=== PATIENT | male | born 1955 | race Caucasian/White ===

== ENCOUNTER → 2016-03-23 | Outpatient (CLI) | payer BC ==
[~2016-03-23] MED LIST: AMOX500C3 PO
== END | disposition home or self-care (01) ==
LOC: C.LAB 06:56
PROVIDERS: ATTEND Urology
DX: Z85.46 Personal history of malignant neoplasm of prostate (principal)

== ENCOUNTER → 2016-07-31 | Outpatient (CLI) | payer BC ==
--- NOTE | 2016-07-31 08:23 | DIAGNOSTIC IMAGING REPORT ---
PELVIS BILATERAL HIP 2 CLINICAL HISTORY: L hip pain. Bilateral hip replacements. COMPARISON: Pelvis radiographs August 02, 2015 and bone scan August 16, 2015. FINDINGS: Alignment of the total bilateral hip arthroplasties is anatomic. There is no periprosthetic fracture or lucency. The iliac crests were not included on this exam. No fracture or suspicious lesion is identified within visualized portions of the pelvis or the hips. As hypervascular screws are in place. IMPRESSION: Status post total bilateral hip arthroplasties. Hardware intact with no periprosthetic fracture or lucency. Electronically signed by: Fernie Acevedo M.D. 07/31/2016 8:22 AM Dictated Date/Time: 07/31/2016 8:21 AM
== END | disposition home or self-care (01) ==
LOC: C.RDSM 07:45
PROVIDERS: ATTEND Physician Assistant
DX: Z96.643 Presence of artificial hip joint, bilateral (principal)

== ENCOUNTER → 2016-10-27 | Outpatient (CLI) | payer BC | END | disposition home or self-care (01) | LOC: C.LAB 06:55 | PROVIDERS: ATTEND Urology | DX: Z85.46 Personal history of malignant neoplasm of prostate (principal) ==

== ENCOUNTER → 2017-04-13 | Outpatient (CLI) | payer BC, OTHER ==
--- NOTE | 2017-04-13 11:02 | DIAGNOSTIC IMAGING REPORT ---
R HAND MIN 3 VIEWS HISTORY: 61 years-old Male RIGHT HAND PAIN acute right hand pain COMPARISON: None available TECHNIQUE: 3 views of the right hand FINDINGS: Mild radiocarpal, triscaphe and first carpal metacarpal osteoarthritis. Cortical thickening of the fifth metatarsal neck distally suggests remote healed fracture. Mild Osteophytic spurring involves the metacarpal heads. No acute fracture, dislocation or opaque foreign body. IMPRESSION: 1. Mild degenerative changes without acute fracture or dislocation. 2. Cortical thickening of the distal fifth metacarpal suggests sequela of remote healed fracture. The above report was generated using voice recognition software. It may contain grammatical, syntax or spelling errors. Electronically signed by: Cisco Castellanos M.D. 04/13/2017 11:01 AM Dictated Date/Time: 04/13/2017 10:58 AM
--- NOTE | 2017-04-13 11:04 | DIAGNOSTIC IMAGING REPORT ---
L HAND MIN 3 VIEWS CLINICAL HISTORY: 61 years-old Male presenting with LEFT HAND PAIN. TECHNIQUE: Frontal, oblique, and lateral views of the left hand were obtained. COMPARISON: Comparison made to plain radiographs of the right hand. FINDINGS: No acute fracture or malalignment. No advanced degenerative change. No radiographic soft tissue abnormality. IMPRESSION: No acute osseous injury. Electronically signed by: Woody Lerner M.D. 04/13/2017 11:02 AM Dictated Date/Time: 04/13/2017 11:01 AM
== END | disposition home or self-care (01) ==
LOC: C.RDSM 10:50
PROVIDERS: ATTEND Physician Assistant
DX: M79.641 Pain in right hand (principal); M79.642 Pain in left hand

== ENCOUNTER 2017-07-13 09:18 | Emergency (ER) | payer OTHER ==
[~2017-07-13] VITALS: Ht 170.2 cm; Wt 100.9 kg
[2017-07-13 09:39] VITALS: Ht 170.2 cm; Wt 100.9 kg
--- NOTE | 2017-07-13 09:52 | EMERGENCY ROOM VISIT NOTE ---
History Report prepared by Kishor: Zachery Daniels Under the Supervision of: Dr. Christoph Davalos M.D. First contact with patient: 09:46 Chief Complaint: FINGER PAIN Stated Complaint: FINGER SWOLLEN AROUND RING History of Present Illness The patient is a 61 year old male who presents to the Emergency Room with complaints of constant left ring finger swelling beginning last night. The patient states that he has been working on engines for the past week and might have cut his finger under his wedding ring. He notes that he noticed a laceration under his ring last night, and squeezed his finger to get the ring off. He reports that when he squeezed his finger, a small amount of pus came out. The patient states that he is now unable to get his ring off because his finger swelled overnight. He notes that he tried the "string trick" to get the ring off with no success. He denies any abdominal pain, fever, chills, cough, and congestion. He reports that he does not have a history of diabetes. Source of History: patient Onset: last night Position: other (left ring finger) Quality: other (swelling) Timing: constant Associated Symptoms: No fevers, No chills, No cough, No abdominal pain Note: The patient also complains of a laceration under his ring that drains pus when squeezed. He denies any congestion. Review of Systems See HPI for pertinent positives and negatives. A total of ten systems were reviewed and were otherwise negative. Past Medical & Surgical Medical Problems: (1) No Known Active Medical Problems Family History No pertinent family history stated. Social History Smoking Status: Current Every Day Smoker Marital Status: Housing Status: lives with family Occupation Status: employed Current/Historical Medications Scheduled PRN Amoxicillin (Amoxil), 500 MG PO DIRECTED PRN for BEFORE DENTAL PROCEDURES Allergies Coded Allergies: No Known Allergies (Unverified , 07/13/17) Physical Exam Vital Signs Date Time Temp Pulse Resp B/P (MAP) Pulse Ox O2 Delivery O2 Flow Rate FiO2 07/13/17 10:51 37.0 90 18 170/93 95 07/13/17 09:39 37.0 68 18 149/80 93 Room Air Physical Exam GENERAL: Awake, alert, well-appearing, in no distress HENT: Normocephalic, atraumatic. Oropharynx unremarkable. EYES: Normal conjunctiva. Sclera non-icteric. NECK: Supple. No nuchal rigidity. FROM. No JVD. RESPIRATORY: Clear to auscultation. CARDIAC: Regular rate, normal rhythm. Extremities warm and well perfused. Pulses equal. ABDOMEN: Soft, non-distended. No tenderness to palpation. No rebound or guarding. No masses. RECTAL: Deferred. MUSCULOSKELETAL: Chest examination reveals no tenderness. The back is symmetrical on inspection without obvious abnormality. There is no CVA tenderness to palpation. No joint edema. UPPER EXTREMITIES: Left forth phalanx with ring stuck and distal edema, no erythema or warmth. LOWER EXTREMITIES: Calves are equal size bilaterally and non-tender. No edema. No discoloration. NEURO: Normal sensorium. No sensory or motor deficits noted. SKIN: No rash or jaundice noted. Medical Decision & Procedures ED Course 0947: The patient was evaluated in room B8. A complete history and physical exam was performed. 1029: I reevaluated the patient. Discussed results and discharge instructions: he verbalized understanding and agreement. The patient is ready for discharge. Medical Decision I reviewed the patient's past medical history, medications, and the nursing notes as described above. Differential diagnoses include: stuck ring, cellulitis, abscess. The patient is a 61 y/o gentleman who presents to the emergency department with his wedding ring stuck on his left ring finger since yesterday per HPI. On arrival the patient is well-appearing, in NAD, AFVSS. Denies f/c, n/v. On exam, left 4th proximal phalanx demonstrate ring stuck with distal swelling. Mild erythema underlying rink but otherwise no warm or ttp. Unable to slide ring off with soap. Patient previously attempt string technique without success, thus, ring removed by tech with ring cutter. Post-removal without evidence of fluctuance or induration to suggest abscess. FROM active and passively without pain. Findings and plan for follow-up reviewed with patient. Patient agreeable and d/c'd per discharge instructions. Blood Pressure Screening Patient's blood pressure: Elevated blood pressure Blood pressure disposition: Elevated BP felt to be situational Impression Primary Impression: Tight ring on finger Scribe Attestation The scribe's documentation has been prepared under my direction and personally reviewed by me in its entirety. I confirm that the note above accurately reflects all work, treatment, procedures, and medical decision making performed by me. Departure Information Dispostion Home / Self-Care Referrals Clark Eller M.D. (PCP) Forms HOME CARE DOCUMENTATION FORM, IMPORTANT VISIT INFORMATION, WORK / SCHOOL INSTRUCTIONS Patient Instructions My [facility] Additional Instructions Please follow up with your primary care physician as needed for re-evaluation. Your ring was successfully removed. Otherwise, your exam did not show signs of an emergent condition at this time. Acetaminophen or ibuprofen for pain and fevers as needed. Apply antibiotic ointment and was daily with soap and water. Return to the emergency department for worsening symptoms as described in the accompanying instructions.
[2017-07-13 10:51] VITALS: BP 170/93; PULSE 90; TEMP 37; O2SAT 95
== END 2017-07-13 10:54 | disposition home or self-care (01) ==
LOC: C.EDB 09:19
DX: S60.455A Superficial foreign body of left ring finger, initial encounter (principal); S61.215A Laceration without foreign body of left ring finger without damage to nail, initial encounter; W26.8XXA Contact with other sharp object(s), not elsewhere classified, initial encounter; R03.0 Elevated blood-pressure reading, without diagnosis of hypertension; F17.200 Nicotine dependence, unspecified, uncomplicated

== ENCOUNTER 2023-03-14 05:10 | Observation (INO) ==
--- NOTE | 2023-02-20 14:55 | PAT Medication Instructions ---
Medication Instructions Date of Service February 20, 2023 Home Medications amoxicillin 500 mg tablet 500 mg PO UD PRN multivitamin 1 tab PO QAM cyclobenzaprine 10 mg tablet 10 mg PO TID PRN doxycycline hyclate 100 mg tablet 100 mg PO BID PRN ibuprofen 200 mg tablet (Advil) 200 mg PO BID PRN latanoprost (PF) 0.005 % eye drops in a dropperette 1 drp ophthalmic (eye) PM levothyroxine 50 mcg tablet 50 mcg PO QAM valsartan 80 mg tablet 80 mg PO QAM Continue as directed amoxicillin 500 mg tablet 500 mg PO UD PRN(if needed) ASK your surgeon for instructions ibuprofen 200 mg tablet (Advil) 200 mg PO BID PRN DO NOT take the morning of surgery multivitamin 1 tab PO QAM valsartan 80 mg tablet 80 mg PO QAM Take morning of surgery With a small sip of water, OTHERWISE NOTHING TO EAT OR DRINK AFTER MIDNIGHT: cyclobenzaprine 10 mg tablet 10 mg PO TID PRN(if needed) doxycycline hyclate 100 mg tablet 100 mg PO BID PRN(if needed) levothyroxine 50 mcg tablet 50 mcg PO QAM Take evening before surgery cyclobenzaprine 10 mg tablet 10 mg PO TID PRN(if needed) doxycycline hyclate 100 mg tablet 100 mg PO BID PRN(if needed) latanoprost (PF) 0.005 % eye drops in a dropperette 1 drp ophthalmic (eye) PM Other Notes If you have any questions please call us at [phone] or [phone] or [phone] or [phone]
--- NOTE | 2023-03-01 13:47 | Anesthesiology Consultation ---
Date of Service March 01, 2023 Assessment & Plan (1) Encounter for pre-operative examination: - Infectious disease screening: Per assessment on 03/01/22: No known infectious disease contacts. No current/recent infectious disease symptoms in past 10+ days. No noted recent Covid positive test result. - Outpatient joint pathway: Per OR booking comments, plan for outpatient joint program. Patient seen at [facility] 03/01/23. Patient is medically an acceptable candidate to proceed as planned outpatient joint pathway pending perioperative course. Patient states he is leaning towards wishing to stay overnight postoperatively per his own preference- he states he will make ultimate decision with surgeon. - Patient acceptable risk for surgery pending surgeon-ordered PCP preop evaluation ([facility], appt 03/05). Chart Review Chart Review: Patient seen in Pre Admission Testing Teaching & Discussion Pre-Anesthesia Teaching/Discussion Notes: Instructed NPO after midnight before surgery,except medications with 15 cc of water. Medication instructions provided according to the [facility] guidelines. History Surgery Operation Date: 03/14/23 07:00 Proposed Procedures p Left Total Knee Arthroplasty - Chauncey Hagen MD Height/Weight Height: 5 ft 7 in Weight: 98.9 kg Allergies Allergy/AdvReac Type Severity Reaction Status Date / Time No Known Drug Allergies Allergy Verified 02/15/23 13:27 Medications Home Medications Medication Instructions Recorded Confirmed Last Taken amoxicillin 500 mg tablet 500 mg PO UD PRN BEFORE DENTAL 08/15/18 02/15/23 08/20/18 PROCEDURES multivitamin 1 tab PO QAM 07/10/22 02/15/23 Unknown cyclobenzaprine 10 mg tablet 10 mg PO TID PRN Pain 08/15/22 02/15/23 Unknown doxycycline hyclate 100 mg tablet 100 mg PO BID PRN tick bites 02/15/23 02/15/23 Unknown ibuprofen 200 mg tablet (Advil) 200 mg PO BID PRN Pain 02/15/23 02/15/23 Unknown latanoprost (PF) 0.005 % eye drops 1 drp ophthalmic (eye) PM 02/15/23 02/15/23 Unknown in a dropperette levothyroxine 50 mcg tablet 50 mcg PO QAM 02/15/23 02/15/23 Unknown valsartan 80 mg tablet 80 mg PO QAM #90 Tabs 02/27/23 Unknown Past Medical History Medical History Hypothyroidism Hypertension Restless leg syndrome mild History of COVID-19 Summer 2021- mild flu symptoms Thyroid nodule Osteoarthritis Prostate cancer s/p prostatectomy (approximately 2015) Exercise / Class Metabolic Activity II 4-5 Yardwork/Stairs/Walk up hill Past Family History Family History Mother Diabetes Breast cancer Hypertension Father Thyroid cancer Hypertension Sister Thyroid cancer Past Surgical History Surgical History History of arthroscopy Left knee History of total hip arthroplasty R/L Hx of prostate biopsy History of colonoscopy History of prostatectomy Approximately 2015 ([facility]) History of tooth extraction Past Anesthesia History No Family Hx of Anesthesia Complications and Other (Awareness with left ERLIN) History of PONV No Hx of PONV and No Hx of Motion Sickness Social History Smoking Status: Current every day smoker tobacco type: cigars Smoking cigarettes per day: Cigars-3-5 small cigars daily Do You Dip or Chew Tobacco: No Hx Alcohol Use: Yes Alcohol type: beer alcohol intake frequency: a few times a week Hx Substance Use: No substance use type: does not use Review of Systems Patient denies chest pain, shortness of breath, dyspnea on exertion, fever, chills, cough, wheezing, palpitations. Physical Exam Vital Signs VITALS BP 139/71 P 63 TEMP 98.3 SP02 95%RA RESP 16 PHYSICAL Full cervical extension range of motion. Full TMJ range of motion. TMD 4 finger breaths Mallampati Score 1 Dentition: intact, + crowns/implants Lungs: clear throughout to auscultation Cardiac: regular rate and rhythm, no murmurs noted Spine: normal Carotid arteries: negative bruit Extremities: no LE edema Lab Results Anesthesia Preop Results Results Anesthesia Widget: WBC 7.33 K/ul (4.8-10.8) 02/05/23 Hgb 16.6 g/dl (14.0-18.0) 02/05/23 Hct 48.9 % (42.0-52.0) 02/05/23 Plt 206 K/uL (130-400) 02/05/23 Na 139 mmol/L (136-145) 02/05/23 K 4.2 mmol/L (3.5-5.1) 02/05/23 Cl 110 mmol/L (98-107) H 02/05/23 CO2 22 mmol/L (21-32) 02/05/23 BUN 24 mg/dl (6-23) H 02/05/23 Creat 0.94 mg/dl (0.6-1.4) 02/05/23 Glucose Level 110 mg/dl (70-99(Fasting)) H 02/05/23 PT 10.5 Seconds (9.0-12.0) 03/01/23 PTT 27 Seconds (21-31) 03/01/23 INR 1.0 (0.9-1.1) 03/01/23 TSH 3.707 uIu/ml (0.300-4.500) 02/05/23 Urine Color Yellow 03/01/23 Urine Appearance Clear (Clear) 03/01/23 Urine pH 6.5 (4.5-7.5) 03/01/23 Urine Specific [place] 1.017 (1.000-1.030) 03/01/23 Urine Protein Negative (Negative) 03/01/23 Urine Glucose (UA) Negative (Negative) 03/01/23 Urine Ketones Negative (Negative) 03/01/23 Urine Blood Negative (Negative) 03/01/23 Urine Nitrite Negative (Negative) 03/01/23 Urine Bilirubin Negative (Negative) 03/01/23 Urine Urobilinogen Negative (Negative) 03/01/23 Urine Leukocyte Esterase Negative (Negative) 03/01/23 Blood Type O Negative 03/01/23 Antibody Screen NEGATIVE 03/01/23 Testing Electrocardiogram Date: 03/01/23 NSR at 63bpm. LAD. Chest X-Ray Date: 03/01/23 FINDINGS: The lungs are clear. Cardiac silhouette is normal in size. No pleural effusions. No pneumothorax. IMPRESSION: No acute process.
[2023-03-14] MEDS ORDERED: LR 500ML BOLUS, THEN 15ML/HR IV SCH (06:00)
[2023-03-14] MEDS ORDERED: ROPIVACAINE 0.5% HCL/PF 246 MG, Ketorolac (*for OR use only*) 30 MG, EPINEPHrine 30MG/3... INFIL SCH (06:00)
[2023-03-14] MEDS ORDERED: ceFAZolin 2000MG 2,000 MG/15 ML SYR IV SCH (06:00)
[2023-03-14] MEDS ORDERED: TRANEXAMIC ACID 1,000 MG **IV Pre-op IV SCH (06:00)
[2023-03-14] MEDS ORDERED: BUPIVACAINE 0.5 % 5 MG/1 ML PF 10ML VIAL ONE (06:19)
[2023-03-14] MEDS ORDERED: ROPIVACAINE 0.5% 5 MG/ML 30 ML VIAL ONE (06:19)
--- NOTE | 2023-03-14 06:31 | History & Physical Bridge Note ---
Date of Service March 14, 2023 History & Physical Bridge Note I have examined the patient, reviewed the History & Physical and in the interval since the performance of the History & Physical I have noted the following changes of clinical significance: site and consent verified.no changes noted
[2023-03-14] MEDS ORDERED: ONDANSETRON INJ 2 MG/ML 2 ML VIAL IV PRN ×2 (06:34→10:34)
[2023-03-14] MEDS ORDERED: fentaNYL citrate PF 100 MCG/2 ML VIAL IV PRN (06:34)
[2023-03-14] MEDS ORDERED: ePHEDrine sulfate 50 MG/ML AMP IV PRN (06:34)
[2023-03-14] MEDS ORDERED: ATROPINE SULFATE 0.1 MG/ML 10ML SYR IV PRN (06:34)
[2023-03-14] MEDS ORDERED: ORTHO JOINT ANESTHETIC ONE (06:35)
[2023-03-14] MEDS ORDERED: fentaNYL citrate PF 100 MCG/2 ML VIAL ONE (06:36)
[2023-03-14] MEDS ORDERED: MIDAZOLAM HCL 1 MG/ML 2ML VIAL ONE ×2 (06:36→07:01)
[2023-03-14] MEDS ORDERED: PROPOFOL IV EMULSION 10 MG/ML 20 ML VIAL IV ONE ×3 (07:22→08:17)
[2023-03-14] MEDS ORDERED: GLYCOPYRROLATE 0.2 MG/ML VIAL ONE (07:22)
[2023-03-14] MEDS ORDERED: ONDANSETRON INJ 2 MG/ML 2 ML VIAL ONE (07:22)
[2023-03-14] MEDS ORDERED: PHENYLEPHRINE HCL 10 MG/ML VIAL ONE ×2 (07:22)
[2023-03-14] MEDS ORDERED: TRANEXAMIC ACID / 0.7% NACL 1000MG/100ML BAG IV ONE (08:11)
[2023-03-14] MEDS ORDERED: TRANEXAMIC ACID 100 MG/ML 10 ML VIAL IV ONE (08:11)
--- NOTE | 2023-03-14 08:40 | Post Operative Brief Note ---
Immediate Post Op Note v1 Date of Surgery March 14, 2023 Pre & Post Diagnosis Operation Date: 03/14/23 07:00 <No data on this case meets the specified criteria> Pre and postop diagnosis is osteoarthritis with flexion varus deformity left knee failed conservative management postop diagnosis same I identified the patient and participated in the time-out.: Yes Procedure Operation Date: 03/14/23 07:00 <No data on this case meets the specified criteria> Cemented rotating platform left total knee replacement Surgeon Chauncey Hagen MD Security Assessor VINEET/Ai Estimated Blood Loss 25 Findings Consistent with Post-Op Diagnosis Severe DJD with flexion varus deformity Fluids See anesthesia report Complications None
--- NOTE | 2023-03-14 08:45 | Operative Report ---
Post Operative Report Procedure Date: March 14, 2023 Pre & Post Diagnosis: [Severe osteoarthritis left knee with flexion varus deformity preop diagnosis Postop diagnosis same] Time Out: I identified the patient and participated in the time-out. Procedure: [Cemented left total knee replacement rotating platform system] Surgeon: Blake] Laborer [employer]: [VINEET/Ai] Estimated Blood Loss: [] 25 cc Findings: [Severe medial patellofemoral arthropathy severe flexion deformity and varus alignment] Specimens: [Bone pathology] Description of Procedure: [After the patient was appropriate notified site verified consent verified antibiotics and TXA confirmed to be given the left lower extremity was prepped and draped in his routine fashion. EUA revealed flexion deformity of about 7 degrees varus alignment of about 7 degrees tourniquet was inflated to 275 mmHg to exsanguinate limb and arteries are manage for total 63 minutes. There was extensive synovitis this was resected. There was extensive osteophytes these were resected. The box was all congested with osteophytes there is ACL deficie ncy this was all opened up distal femur was then entered with a drill bit the cruciate posteriorly was resected. The tibia was subluxated the menisci resected. There is very tight and required a substantial soft tissue release posterior medially. Once this was all completed the distal femur was then resected 10 mm. The tibia was then subluxated and then resected 4 mm off the low side. The extension gap was excellent. The femur was sized to a size 6 appropriate cutting block applied the anterior posterior, chamfer cuts made. Flexion gap was then checked and was excellent. Posterior capsule was then injected. This was with the Ortho mix. The final box cut was then made on the femur. The level of the seating holes were then made as well. The trial implant was seated. The tibia was then broached and reamed to a size 6 and a 6 spacer provided excellent extension flexion gap stability the patella tracked well. The patella was then resected leaving about 17 mm of its own patella. In the 38 patella fit well. It tracked well after the seating holes were made. All trial implants were then removed wound was irrigated and Betadine Pulsavac and then the permanent cemented into position tibia femur and patella in that order a 12 minutes the tourniquet was deflated minor bleeding points controlled electrocautery. The patient did receive an additional dose of TXA at that time. After 14 minutes the knee was then inspected there was no cement removal required trial spacer was removed the wound was irrigated with Betadine Pulsavac permanent liner seated and then the permanent knee reduced and closed with #2 Vicryl 2-0 Vicryl and stainless to clips appropriate dressing applied patient transferred recovery in satisfactory condition he tolerated the procedure well. Summary of implants Algaeon total knee replacement system]. Size 6 left femur size 6 tray size 38 patella was 6 x 6 mm posterior cruciate substituting rotating platform insert 2 bags of [place] G cement EBL 25 cc or less crystalloid per anesthesia DVT prophylaxis with Eliquis starting in 24 hours. Attestation: I attest to the content of the Intraoperative Record and any orders documented therein. Any exceptions are noted below.
--- NOTE | 2023-03-14 08:48 | Discharge Summary ---
Date of Service March 15, 2023 Admission HPI Per Admitting Provider Admitted for cemented left total knee replacement. See operative report. 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 Total Time Total Time Spent Total Time Spent (In Minutes): 5 minutes Discharge Plan Discharge Items Patient Disposition: Home - Home Health Services Reason For Visit: Left Knee Degenerative Joint Disease Discharge Diagnosis: Same Condition on Discharge: Good Activity: Per Instructions section Lifting: Wait until after follow-up appointment Bathing: Keep incision dry Sexual Activity: Wait until after follow-up appointment Weightbearing: Left weightbearing Non-emergency contact: Surgeon Call non-emergency contact if: you have any medication questions, your pain is not controlled, your temperature is above 101, your temperature is above 101.5, your wound has increased redness, your wound has increased drainage and your wound pain has increased Follow-up/Referrals: Clark Eller MD [Primary Care Provider] - Aries Dawson PA-C [Physician Massage Therapist] - 03/29/23 1:30 pm Diet: Regular Addtl Attending Provider Instructions: New Medicine: * You will likely be taking one or more of these medications: 1. Percocet - Take, as directed, when you need it, every four to six hours to control your pain. 2. Iron Sulfate - Take 1x each day for the month after surgery to help you replace the blood lost during surgery. 3. Eliquis - Thins your blood to lessen the chance of forming a blood clot. * The most common side effects of pain medicine and iron are nausea and constipation. If nausea or constipation is too much of a problem or if you have any questions about your new medicines or doses, call [facility] at . We will try to help you manage these issues. "VERY IMPORTANT TO READ AND REVIEW" Blood Clots and Blood Thinning Medicine: * You are given Eliquis during the immediate post-operative period to lessen the risk of blood clots forming in your legs and/or lungs. It is usually given for 4 weeks after Pain: * The immediate post-operative period after knee replacement surgery is often quite painful. * You are given a prescription for pain medicine. You should take it, as directed, when you need it, especially before physical therapy and before going to bed. Pain that interferes with sleep is very common and can last several months. * You will likely need pain medicine for the first four to six weeks. It will not stop all of the pain. The pain will lessen and as you feel better, you may change to milder pain medicine such as Tylenol. * The most common side effects of pain medicine are nausea and constipation, so don't take more than you need. Physical Therapy: * You will have physical therapy two or three times each week for four to six weeks after your surgery in order to regain your knee range of motion and to retrain your knee to work properly. * It is just as important to make sure you are getting your knee perfectly straight as it is to regain your knee bend. * Taking a pain pill an hour before therapy can help you have a more productive and comfortable therapy session if needed. Home Exercise: * You were shown a series of exercises (heel props, heel slides, etc.) in the hospital. Do these exercises three to four times each day including the exercises you were shown in physical therapy. Walking: * Get up and walk several times each day. For the first four weeks, try not to stand or walk for more than one hour at a time. If you do stand or walk for more than one hour, you will not hurt anything, but your knee and leg will likely swell. * As you feel comfortable, you may change from the walker or crutches to a cane and then to independent walking. SELF CARE INSTRUCTIONS AFTER TOTAL KNEE REPLACEMENT A. You may need to continue a physical therapy program after discharge from the hospital. There are several options available to you. Your doctor will assist you in selecting the best one for you. 1. An out-patient facility 2 to 3 times a week for therapy or home therapy. 2. Continue working on all exercises taught to you in the hospital. Your goals should be to increase bending of your knee to 90 degrees and beyond and to fully straighten your knee. B. You may progress at your own pace from walking with a walker or crutches to a cane; then to no assistive devices. C. Make walking a part of your daily routine. Be up as much as comfortable with rest periods throughout the day. Rest with leg elevation is very important. Use the ice wrap frequently for the first 3-4 weeks. D. There are no restrictions on activities. You may ride in a car, shop, participate in spool salvager and all social activities. E. Wear the long elastic stockings (ROSA hose) 20 hours a day for six weeks after surgery. They can be removed several times a day for laundering and for a shower. F. Do not place a pillow behind your knee when resting. A pillow at your ankle is okay. VERY IMPORTANT TO READ AND REVIEW A. Take Eliquis (blood thinning medication) as directed by your doctor. B. There are a few signs you need to watch for after you are home. Call [facility] if you notice any of the followin. Increased severe knee pain. Some pain is expected especially when you exercise. 2. Increased swelling in your leg or knee; pain or swelling of the calf muscle in either lower leg. 3. Any fluid drainage from the incision. 4. Shortness of breath or chest pain. C. Please call [facility] at if you have any concerns or questions about your operation or recovery. The doctor or his nurse will return your call promptly. D. You must take antibiotics before dental work, bladder, bowel or other surgery. Call the office to obtain a prescription at least 2 days prior to your appointment. * CALL IF INCREASED PAIN, REDNESS, DRAINAGE OR FEVER GREATER THAT 101. * Sutures should be removed 12-14 days after surgery unless you are on chronic steroids, then it will be 14-18 days after surgery. Call your doctor if: * Temperature above 101 degrees F. * Pain not relieved by pain medicine ordered. * Increased drainage or redness from incision. * Notify your doctor with any questions or concerns. Ice and elevate the leg frequently to reduce pain and swelling Practice performing a straight leg raise several times per day. Use your knee immobilizer today and tomorrow when out of bed. Do not sleep in it. It can be discontinued entirely on Sunday morning. Leave your dressing in place over the weekend. It can be changed on Sunday by Home Health if needed for soiling Start your Eliquis this evening with dinner. Take it 2 times per day for the next 4 weeks Pending Studies at Discharge: Yes Studies:: Bone pathology Stand-Alone Forms: My [facility], Smoking Cessation Medications and DC Order Prescriptions: No Action valsartan 80 mg tablet 80 mg PO QAM Qty: 90 3RF mecobalamin (vitamin B12) 1,000 mcg tablet,disintegrating 1,000 mcg sublingual DAILY Rx Instructions: place tablet under tongue and allow to dissolve for at least30 secs before swallowing multivitamin Tablet 1 tab PO QAM cyclobenzaprine 10 mg tablet 10 mg PO TID PRN (Reason: Pain) amoxicillin 500 mg Tablet 500 mg PO UD PRN (Reason: BEFORE DENTAL PROCEDURES) latanoprost (PF) 0.005 % Dropperette 1 drp OPHTHALMIC (EYE) PM levothyroxine 50 mcg tablet 50 mcg PO QAM doxycycline hyclate 100 mg tablet 100 mg PO BID PRN (Reason: tick bites) ibuprofen [Advil] 200 mg Tablet 200 mg PO BID PRN (Reason: Pain) diphenhydramine-acetaminophen [Tylenol PM Extra Strength] 25-500 mg Tablet 1 tab PO HS PRN (Reason: Sleep) Admission Data Admit Date/Time: 03/14/23 08:56 Attending Provider: Chauncey Hagen Admit Provider: Chauncey Hagen Primary Care Provider: Clark Eller. Other Providers: [facility],Home Health
--- NOTE | 2023-03-14 08:48 | Orthopedic Progress Note ---
Date of Service March 14, 2023 Orthopedic Progress Note Underwent total knee replacement to the left cemented. Has no issues with chest pain shortness of breath fever chills nausea vomiting headache. Vital signs are stable he is afebrile. Neurovascular check limited by spinal. X-rays pending. contacted. Assessment doing well status post knee replacement continue with care pathway. X-rays in recovery room.
[2023-03-14] MEDS ORDERED: VANCOMYCIN CONSULT ACTIVE PRN ×2 (08:58→10:34)
[2023-03-14] MEDS ORDERED: VANCOMYCIN HCL 1,000 MG in SODIUM CHLORIDE 0.9% 250 ML IV STA (08:58)
[2023-03-14] MEDS ORDERED: VANCOMYCIN HCL 1,500 MG in SODIUM CHLORIDE 0.9% 250 ML IV STA (09:00)
--- NOTE | 2023-03-14 09:00 | Operative Report ---
Post Operative Report Pre & Post Diagnosis Operation Date: 03/14/23 07:00 Pre-Op Diagnosis: Left Knee Degenerative Joint Disease Post-Op Diagnosis: Left Knee Degenerative Joint Disease I identified the patient and participated in the time-out.: Yes Procedure Operation Date: 03/14/23 07:00 Actual Procedures p Left Total Knee Arthroplasty(Left) - Chauncey Hagen MD Surgeon Chauncey Hagen MD Manager Infusion VINEET/Ai Estimated Blood Loss 25 Findings Consistent with Post-Op Diagnosis Same as postoperative diagnosis. Specimens The resected portions of femur, tibia and the patella. Description of Procedure Please see detailed operative note. I attest to the content of the Intraoperative Record and any orders documented therein. Any exceptions are noted below.
[2023-03-14] MEDS ORDERED: ACETAMINOPHEN 1,000 MG/100 ML VIAL IV STA (09:06)
[2023-03-14] MEDS ORDERED: VANCOMYCIN HCL 1,500 MG in SODIUM CHLORIDE 0.9% 500 ML IV STA (09:07)
[2023-03-14] MEDS ORDERED: ACETAMINOPHEN 1000 MG/100 ML IV IV ONE (09:08)
--- NOTE | 2023-03-14 09:17 | Anesthesiology Progress Note ---
Date of Service March 14, 2023 Anesthesia Post Procedure Vital Signs Vital Signs: Temp Pulse Resp BP Pulse Ox O2 Del Method 03/14/23 09:00 79 13 111/64 94 Room Air 03/14/23 08:50 97.7 F 85 12 105/62 95 Room Air 03/14/23 05:34 98.4 F 66 20 152/80 H 96 Room Air Pain Intensity Left Knee: Pain Intensity: 4 Transfer of Care Handoff Completed per policy Notes Mental Status: alert / awake / arousable and participated in evaluation Patient Amnestic to Procedure: Yes Nausea / Vomiting: adequately controlled Pain: adequately controlled Airway Patency, RR, SpO2: stable & adequate BP & HR: stable & adequate Hydration State: stable & adequate Neuraxial Anesthesia: was administered and sensory block is resolving Anesthetic Complications: no major complications apparent and Pt Satisfied with anesthetic care
--- NOTE | 2023-03-14 09:36 | XRay Report ---
LEFT KNEE 2 VIEWS History: Left total knee arthroplasty. Degenerative arthritis. Postop. FINDINGS: The patient is status post a left total knee arthroplasty. The hardware is intact. No fract ure or dislocation. Skin mitchell are in place. IMPRESSION: Left total knee arthroplasty. No evidence for hardware complication. ACT 112: Negative or not required by law. Electronically signed by: Daryl Oliveira M.D. 03/14/2023 9:35 AM
[2023-03-14] MEDS ORDERED: bisacodyL 10 MG SUPP PR PRN (10:34)
[2023-03-14] MEDS ORDERED: MAGNESIUM HYDROXIDE SUSP 30 ML UDC PO PRN (10:34)
[2023-03-14] MEDS ORDERED: diphenhydrAMINE 50 MG/ML VIAL IV PRN (10:34)
[2023-03-14] MEDS ORDERED: TAMSULOSIN HCL 0.4 MG CAP PO PRN (10:34)
[2023-03-14] MEDS ORDERED: NALOXONE HCL 0.4 MG/1 ML VIAL/CARP IV PRN (10:34)
[2023-03-14] MEDS ORDERED: HYDROmorphone INJ 0.5 MG/0.5 ML SYR IV PRN (10:34)
[2023-03-14] MEDS ORDERED: METOCLOPRAMIDE HCL INJ 5 MG/ML 2 ML VIAL IV PRN (10:34)
[2023-03-14] MEDS ORDERED: HYDROmorphone INJ 1 MG/ML SYRINGE IV PRN (10:34)
[2023-03-14] MEDS ORDERED: SODIUM CHLORIDE 0.9% 1,000 ML IV SCH (10:34)
[2023-03-14] MEDS: oxyCODONE HCL IR 5 MG TAB (IMMEDIATE RELEASE) PO PRN ×3 (11:06→20:23)
[2023-03-14] MEDS: LEVOTHYROXINE SODIUM 50 MCG TABLET PO SCH ×2 (11:58→12:32)
[2023-03-14] MEDS: KETOROLAC TROMETHAMINE 15 MG/ML VIAL IV SCH ×3 (11:58→21:47)
[2023-03-14] MEDS: DOCUSATE SODIUM 100 MG CAP PO SCH ×2 (11:58→21:47)
[2023-03-14] MEDS: VALSARTAN 80 MG TAB PO SCH (11:58)
[2023-03-14] MEDS: CYANOCOBALAMIN (B-12) 500 MCG TABLET PO SCH (11:58)
[2023-03-14] MEDS: MULTIVITAMIN TAB PO SCH (11:59)
[2023-03-14] MEDS: ACETAMINOPHEN 500 MG TAB PO SCH ×2 (15:03→21:47)
[2023-03-14] MEDS: ceFAZolin 2000MG 2,000 MG/15 ML SYR IV SCH ×2 (16:01→23:08)
--- NOTE | 2023-03-14 17:56 | Orthopedic Progress Note ---
Date of Service March 14, 2023 Assessment & Plan Admission and Anticipated Discharge Date Admission Date: March 14, 2023 Orthopedic Progress Note He is doing very well. He has no issues with pain.He denies chest pain shortness of breath fever chills nausea vomiting or headache. Vital signs are stable he is afebrile. Neurovascular check from sciatic nerve is normal. Wound dressing clean and dry. He can do a straight leg raise. Eating drinking voiding. Assessment doing well status post total knee replacement postop x-rays look excellent left knee. Plan is to discharge tomorrow distal service final note.Start Eliquis tomorrow.
[2023-03-14] MEDS ORDERED: LATANOPROST 0.005% OP SOLN 2.5 ML BTL OP SCH (21:00)
[2023-03-14] MEDS ORDERED: SENNA 8.6 MG TAB PO SCH (21:00)
[2023-03-15] MEDS: LEVOTHYROXINE SODIUM 50 MCG TABLET PO SCH (05:23)
[2023-03-15] MEDS: ACETAMINOPHEN 500 MG TAB PO SCH (05:23)
[2023-03-15] MEDS: KETOROLAC TROMETHAMINE 15 MG/ML VIAL IV SCH (05:23)
[2023-03-15 06:11] LABS: Hematocrit (blood only) 39.7 % (42.0-52.0); Hemoglobin 13.1 g/dl (14.0-18.0); Mean Corpuscular Hemoglobin 29.4 pg (25.0-34.0); Mean Platelet Volume 10.5 fL (9.4-12.4); Platelet Count 170 K/uL (130-400); RDW Coefficient of Variation 13.1 % (11.5-14.5); RDW Standard Deviation 42.5 fL (36.4-46.3); Red Blood Count 4.46 M/uL (4.70-6.10); White Blood Count 9.89 K/ul (4.8-10.8)
--- NOTE | 2023-03-15 06:18 | Orthopedic Progress Note ---
Date of Service March 15, 2023 Assessment & Plan Admission and Anticipated Discharge Date Admission Date: March 14, 2023 Orthopedic Progress Note AM follow-up postop day 1 laboratory work is good hematocrit is 39 dressing change later today and discharge start Eliquis this morning.
[2023-03-15 06:25] LABS: BUN Creatinine Ratio 15.7 (10-20); Calcium 8.2 mg/dl (8.6-10.3); Creatinine Clr Calc Pharmacy 69.4 ml/min; Est GFR (African American) 75.4 ml/min; Potassium 4.5 mmol/L (3.5-5.1)
[2023-03-15] MEDS ORDERED: dexAMETHasone 4 MG TAB PO SCH (08:00)
[2023-03-15] MEDS: CYANOCOBALAMIN (B-12) 500 MCG TABLET PO SCH (08:34)
[2023-03-15] MEDS: MULTIVITAMIN TAB PO SCH (08:34)
[2023-03-15] MEDS: DOCUSATE SODIUM 100 MG CAP PO SCH (08:34)
[2023-03-15] MEDS: VALSARTAN 80 MG TAB PO SCH (08:34)
[2023-03-15] MEDS ORDERED: APIXABAN 2.5 MG TAB PO SCH (09:00)
--- NOTE | 2023-03-15 09:00 | Orthopedic Progress Note ---
Date of Service March 15, 2023 Assessment & Plan (1) Status post left knee replacement: Plan: Patient is postop day 1 status post a left total knee arthroplasty. He is doing well as expected. At this time his pain is controlled with oral medication. We did discuss pain control at home utilizing ice and pain medication. PDMP was queried no red flags. He was sent a prescription for Percocet. He was advised he may take Tylenol in addition to this however not to exceed 3000 mg in 24 hours. He also was prescribed Eliquis for DVT prophylaxis. He was advised to take 1 pill twice a day x 4 weeks for DVT prophylaxis. He will also use the ROSA hose for DVT prophylaxis. His dressing was changed today and he was advised on keeping this in place and keeping it clean and dry. He will be discharged if PT deems safe to return home today. He will have home health services. He does have a follow-up appointment with Aries Dawson on 03/29/2023 for staple removal. He will continue utilizing the walker with weightbearing. He will continue to use knee immobilizer with ambulating and may discharge on 03/17/2023. He was advised if he has any questions or concerns to contact the office at any time. Patient had ample time to ask questions and verbalized understanding of above. Admission and Anticipated Discharge Date Admission Date: March 14, 2023 Subjective Patient is a 67-year-old male who is status post a left total knee arthroplasty postop day [address] Thomas. He was seen bedside this a.m. He is alert and oriented x 3 pleasant and conversive. He states he is doing well and feels his pain is controlled. He states his pain is about a 3/10. He feels his pain is being controlled with oral pain medication. He states he is doing better than what he expected. He reports that he was able to eat without any difficulty this a.m. he denies any belly pain or nausea. Denies any calf pain, chest pain or shortness of breath fever or chills. He feels he is able to go home today. He is waiting to see physical therapy. Review of Systems Review of Systems: Please refer to HPI Physical Exam Physical Exam: General: Patient is alert and oriented x 3 no acute distress pleasant and conversive Integumentary/musculoskeletal: Dressing is in place negative for any soiling. Dressing was removed. Dried blood on gauze negative for any active bleeding. Incision is well-approximated with mitchell. Mild edema in the left lower extremity as anticipated. He is able to do active range of motion -5 degrees to approximately 45 degrees flexion. He is able to do an active straight leg raise and actively dorsiflex and plantarflex ankle. His dorsal pedis pulses palpable at 2. His calf is soft and nontender. His left lower extremity is neurovascularly intact Results & Data Vital Signs (Past 12 Hours) Vital Signs Temp Pulse Resp BP Pulse Ox O2 Del Method 03/15/23 08:00 Room Air 03/15/23 07:18 36.6 C 68 16 142/73 H 95 Room Air 03/15/23 03:02 36.7 C 78 16 134/70 95 Room Air 03/14/23 23:07 36.8 C 65 16 141/78 H 95 Room Air Laboratory Results 03/15/23 Range/Units 05:19 WBC 9.89 (4.8-10.8) K/ul RBC 4.46 L (4.70-6.10) M/uL Hgb 13.1 L (14.0-18.0) g/dl Hct 39.7 L (42.0-52.0) % MCV 89.0 (80.0-100.0) fL MCH 29.4 (25.0-34.0) pg MCHC 33.0 (32.0-36.0) g/dL RDW Std Deviation 42.5 (36.4-46.3) fL RDW Coeff of Ravindra 13.1 (11.5-14.5) % Plt Count 170 (130-400) K/uL MPV 10.5 (9.4-12.4) fL Sodium 137 (136-145) mmol/L Potassium 4.5 (3.5-5.1) mmol/L Chloride 110 H (98-107) mmol/L Carbon Dioxide 23 (21-32) mmol/L Anion Gap 4 (3-11) BUN 18 (6-23) mg/dl Creatinine 1.15 (0.6-1.4) mg/dl Est Cr Clr Drug Dosing 69.4 ml/min Est GFR ( Amer) 75.4 ml/min Est GFR (Non-Af Amer) 65.0 ml/min BUN/Creatinine Ratio 15.7 (10-20) Glucose 132 H (70-99(Fasting)) mg/dl Calcium 8.2 L (8.6-10.3) mg/dl Diagnostic Findings Knee X-Ray 03/14/23 08:38 LEFT KNEE 2 VIEWS History: Left total knee arthroplasty. Degenerative arthritis. Postop. FINDINGS: The patient is status post a left total knee arthroplasty. The hardware is intact. No fracture or dislocation. Skin mitchell are in place. IMPRESSION: Left total knee arthroplasty. No evidence for hardware complication. ACT 112: Negative or not required by law. Electronically signed by: Daryl Oliveira M.D. 03/14/2023 9:35 AM
[2023-03-15] MEDS: oxyCODONE HCL IR 5 MG TAB (IMMEDIATE RELEASE) PO PRN (10:16)
== END 2023-03-15 13:02 | disposition home health service (06) ==
LOC: 3E 05:10 → ASU 05:10